=== PATIENT | male | born 1990 | race Caucasian/White ===

== ENCOUNTER → 2016-11-20 | Outpatient (CLI) | payer BC ==
--- NOTE | 2016-11-20 09:23 | RADIOLOGY REPORT (SQ) ---
EXAM DESCRIPTION: CT ABD/PELVIS NO ORAL OR IV COMPLETED DATE/TIME: 11/20/2016 8:40 am REASON FOR STUDY: HEMATURIA (R31.9) R31.9 HEMATURIA, UNSPECIFIED COMPARISON: None. TECHNIQUE: CT scan of the abdomen and pelvis performed without intravenous or oral contrast. Images reviewed with lung, soft tissue, and bone windows. Reconstructed coronal and sagittal MPR images revi ewed. All images stored on PACS. All CT scanners at this facility use dose modulation, iterative reconstruction, and/or weight based d osing when appropriate to reduce radiation dose to as low as reasonably achievable (ALARA). [facility]: Dose Right [facility]: CareDose [facility]: Dose Right [facility]: Teradose 4D [facility]: [employer] RADIATION DOSE: Up-to-date CT equipment and radiation dose reduction techniques were employed. CTDIv ol: 6.1 mGy. DLP: 315 mGy-cm.mGy. LIMITATIONS: None. FINDINGS: LOWER CHEST: No significant findings. No nodules or infiltrates. NON-CONTRASTED LIVER, SPLEEN, ADRENALS: Evaluation limited by lack of IV contrast. No identified sign ificant masses. PANCREAS: No masses. No peripancreatic inflammatory changes. GALLBLADDER: No identified stones by CT criteria. No inflammatory changes to suggest cholecystitis. RIGHT KIDNEY AND URETER: No suspicious masses. Assessment limited by lack of IV contrast. No signif icant calcifications. No hydronephrosis or hydroureter. LEFT KIDNEY AND URETER: No suspicious masses. Assessment limited by lack of IV contrast. No signifi cant calcifications. No hydronephrosis or hydroureter. AORTA AND RETROPERITONEUM: No aneurysm. No retroperitoneal masses or adenopathy. BOWEL AND PERITONEAL CAVITY: No obvious masses or inflammatory changes. No free fluid. APPENDIX: Normal. PELVIS, BLADDER, AND ABDOMINAL WALL:No abnormal masses. No free fluid. Bladder normal. BONES: No significant findings. OTHER: No other significant finding. IMPRESSION: NO SIGNIFICANT OR ACUTE PROCESS IN THE ABDOMEN OR PELVIS. COMMENT: Quality ID # [id number]: Final reports with documentation of one or more dose reduction techniques (e.g., Automated exposure control, adjustment of the mA and/or kV according to patient size, use of iterative reconstruction technique) TECHNICAL DOCUMENTATION: JOB ID: [id number] [employer]- All Rights Reserved
== END ==
LOC: RAD 07:38
PROVIDERS: ATTEND Physician Assistant
DX: R31.9 Hematuria, unspecified (principal)
CPT/HCPCS: 74176

== ENCOUNTER 2016-11-26 18:31 | Emergency (ER) | payer BC ==
[2016-11-26 18:42] VITALS: BP 131/73
[2016-11-26 19:34] LABS: AMORPHOUS SEDIMENT,URINE 1+ /HPF; APPEARANCE,URINE TURBID; BILIRUBIN,URINE NEGATIVE (NEGATIVE); GLUCOSE, URINE NEGATIVE (NEGATIVE); KETONES,URINE NEGATIVE (NEGATIVE); LEUKOCYTE ESTERASE,URINE NEGATIVE (NEGATIVE); NITRITE,URINE NEGATIVE (NEGATIVE); PROTEIN,URINE NEGATIVE (NEGATIVE); URINE SPECIFIC GRAVITY 1.018; UROBILINOGEN,URINE NEGATIVE mg/dL (<2.0)
--- NOTE | 2016-11-26 19:45 | ER Document Report ---
ED GI/ - General Chief Complaint: Urinary Problem Stated Complaint: URINARY ISSUES Time Seen by Provider: 11/26/16 19:32 Notes: Patient is a 26-year-old male presents emergency department complaining of hematuria. Patient states that he went to urgent care and had a CT scan done the other day, was sent home on antibiotics and told to follow-up.. Otherwise he admits intermittent groin discomfort but denies any penile discomfort, burning, discharge, testicular pain, . TRAVEL OUTSIDE OF THE [place] IN LAST 30 DAYS: No - Related Data Allergies/Adverse Reactions: Penicillins Allergy (Verified 11/26/16 18:41) Sulfa (Sulfonamide Antibiotics) Allergy (Verified 11/26/16 18:41) Past Medical History - Social History Smoking Status: Unknown if Ever Smoked Family History: Reviewed & Not Pertinent Renal/ Medical History: Denies: Hx Peritoneal Dialysis Review of Systems - Review of Systems Constitutional: No symptoms reported Gastrointestinal: No symptoms reported Genitourinary: See HPI -: Yes All other systems reviewed and negative Physical Exam - Vital signs Vitals: Temp Pulse Resp BP Pulse Ox 98.0 F 68 14 131/73 H 98 11/26/16 18:41 11/26/16 18:41 11/26/16 18:41 11/26/16 18:41 11/26/16 18:41 - General General appearance: Appears well, Alert In distress: None - Abdominal Inspection: Normal Distension: No distension Bowel sounds: Normal Tenderness: Nontender Organomegaly: No organomegaly - Rectal Notes: Patient refused - Genitourinary Inspection: Normal. No: Blood at meatus, Penile discharge, Other Tenderness: Nontender. No: Lesions, Testicle tender, Epididymis tender, Other Cremasteric reflex: Normal. No: Right reflex absent, Left reflex absent Scrotum: Normal. No: Swelling, Redness, Hot to touch, Other - Skin Skin Temperature: Warm Skin Moisture: Dry Skin Color: Normal Skin Turgor: Elastic Course - Re-evaluation Re-evalutation: 11/26/16 19:00 Patient is a 26-year-old male is hemodynamic stable, no acute distress afebrile. No evidence of hematuria noted on urinalysis. CT that was ordered as an outpatient does not reveal any evidence of intra-abdominal or pelvic process nor evidence of a kidney stone. Discussed results with patient's and told him to follow-up with urology regarding his complaints. Patient agrees with plan. - Vital Signs Vital signs: Temp Pulse Resp BP Pulse Ox 98.0 F 68 14 131/73 H 98 11/26/16 18:41 11/26/16 18:41 11/26/16 18:41 11/26/16 18:41 11/26/16 18:41 Discharge - Discharge Clinical Impression: Urinary problem Condition: Good Disposition: HOME, SELF-CARE Additional Instructions: Hematuria Hematuria, or blood in your urine, can be caused by minor medical problems , such as a bladder infection, or by more serious medical conditions, such as kidney stones or even tumors of the bladder or kidney. If the cause of the hematuria is known (such as a bladder infection) and can be treated, it may not need further evaluation. If the cause is not known, it will usually require further evaluation by a specialist, such as a urologist. In particular, unexplained hematuria in the older patient must be evaluated to rule out a serious condition, such as a bladder or kidney tumor. If the hematuria worsens or you are passing clots and then are unable to urinate, you should be re-evaluated. A catheter may need to be placed in the bladder to permit passage of urine. If you develop high fever, severe pain, or other new or worsening symptoms, return to the Emergency Department for re- evaluation. Referrals: [facility] [Provider Group] - Follow up in 1 week ALEX MULLEN MD [ACTIVE STAFF] - Follow up as needed
== END 2016-11-26 20:10 | disposition home or self-care (01) ==
LOC: ER 18:31
DX: R31.9 Hematuria, unspecified (principal); Z88.0 Allergy status to penicillin; Z88.2 Allergy status to sulfonamides
CPT/HCPCS: 81001; 99283

== ENCOUNTER 2018-03-20 01:35 | Inpatient (IN) | payer BC, OTHER ==
[2018-03-20] MEDS ORDERED: HYDROMORPHONE HCL INJ/PF 2 MG/ML AMPULE IV ONE ×2 (01:50→02:48)
[2018-03-20] MEDS ORDERED: NORMAL SALINE 1000 ML 1,000 ML IV ONE (01:50)
[2018-03-20 02:01] LABS: HEMATOCRIT 45.2 % (37.9-51.0); HEMOGLOBIN 15.7 g/dL (13.5-17.0); MEAN CORPUSCULAR HEMOGLOBIN 29.7 pg (27.0-33.4); MEAN CORPUSCULAR HGB CONC 34.7 g/dL (32.0-36.0); MEAN CORPUSCULAR VOLUME 86 fl (80-97); PLATELET COUNT 271 10^3/uL (150-450); RED BLOOD COUNT 5.27 10^6/uL (4.35-5.55); RED CELL DISTRIBUTION WIDTH 14.5 % (11.5-14.0); WHITE BLOOD COUNT 13.7 10^3/uL (4.0-10.5)
[2018-03-20 02:08] LABS: INTERNATIONAL RATION (INR) 0.83; PROTHROMBIN TIME 11.9 SEC (11.4-15.4)
[2018-03-20 02:09] LABS: PARTIAL THROMBOPLASTIN TIME 26.2 SEC (23.5-35.8)
[2018-03-20 02:13] LABS: ALANINE AMINOTRANSFERASE 141 U/L (21-72); ALBUMIN 5.1 g/dL (3.5-5.0); ALCOHOL 261 mg/dL (NONE DETECTED); ALKALINE PHOSPHATASE 65 U/L (38-126); ANION GAP 13 (5-19); ASPARTATE AMINO TRANSFERASE 188 U/L (17-59); BILIRUBIN,DIRECT 0.4 mg/dL (0.0-0.4); BILIRUBIN,TOTAL 0.5 mg/dL (0.2-1.3); BLOOD UREA NITROGEN 15 mg/dL (7-20); CALCIUM 9.2 mg/dL (8.4-10.2); CARBON DIOXIDE 25 mmol/L (22-30); CHLORIDE 108 mmol/L (98-107); GLUCOSE 99 mg/dL (75-110); POTASSIUM 4.4 mmol/L (3.6-5.0); SODIUM 146.1 mmol/L (137-145); TOTAL PROTEIN 7.6 g/dL (6.3-8.2)
[2018-03-20 02:20] LABS: ABSOLUTE LYMPHOCYTES# (MANUAL) 5.2 10^3/uL (0.5-4.7); ABSOLUTE MONOCYTES # (MANUAL) 1.4 10^3/uL (0.1-1.4); ABSOLUTE NEUTROPHILS# (MANUAL) 7.1 10^3/uL (1.7-8.2); BASOPHILS % (MANUAL) 0 % (0-2); EOSINOPHILS % (MANUAL) 0 % (0-6); LYMPHOCYTES % (MANUAL) 38 % (13-45); MONOCYTES % (MANUAL) 10 % (3-13); SEGMENTED NEUTROPHILS % (MAN) 52 % (42-78); TOTAL CELLS COUNTED 100
[2018-03-20 02:22] LABS: PLATELET COMMENT ADEQUATE; RBC MORPHOLOGY COMMENT NORMO-CYTIC/CHROMIC; TOXIC GRANULATION SLIGHT; TOXIC VACUOLATION PRESENT
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
[2018-03-20] MEDS ORDERED: ONDANSETRON HCL INJ/PF 4 MG/2 ML SDV IV ONE (05:51)
[2018-03-20] MEDS ORDERED: RINGERS SOLUTION,LACTATED 1,000 ML IV ONE (05:53)
[2018-03-20] MEDS ORDERED: MIDAZOLAM 2 MG/2 ML INJ ONE (10:21)
[2018-03-20] MEDS ORDERED: ACETAMINOPHEN 1,000 MG/100 ML RTUPB IV ONE (10:21)
[2018-03-20] MEDS ORDERED: PROPOFOL INJ 200 MG/20 ML VIAL IV ONE (10:21)
[2018-03-20] MEDS ORDERED: HYDROMORPHONE HCL INJ/PF 2 MG/ML AMPULE ONE (10:21)
[2018-03-20] MEDS ORDERED: METOCLOPRAMIDE HCL INJ/PF 10 MG/2 ML SDV ONE (10:30)
[2018-03-20] MEDS ORDERED: DEXAMETHASONE SOD PHOSPHATE INJ 4 MG/1 ML VIAL ONE (10:30)
[2018-03-20] MEDS ORDERED: ONDANSETRON HCL INJ/PF 4 MG/2 ML SDV ONE ×2 (10:30→15:13)
[2018-03-20] MEDS ORDERED: SUCCINYLCHOLINE CHLORIDE INJ 200 MG/10 ML VIAL ONE (10:30)
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
[2018-03-20] MEDS ORDERED: ONDANSETRON HCL INJ/PF 4 MG/2 ML SDV IV PRN (11:34)
[2018-03-20] MEDS ORDERED: DIPHENHYDRAMINE HCL 50 MG/ML VIAL IV PRN (11:34)
[2018-03-20] MEDS ORDERED: FENTANYL CITRATE INJ/PF 100 MCG/2 ML AMPUL IV PRN ×3 (11:34)
[2018-03-20] MEDS ORDERED: OXYCODONE-ACETAMINOPHEN 5-325 MG TABLET PO PRN ×3 (11:34→15:12)
[2018-03-20] MEDS ORDERED: MEPERIDINE HCL/PF INJ 25 MG/1 ML DISP.SYRIN IV PRN (11:34)
[2018-03-20] MEDS ORDERED: PROMETHAZINE HCL INJ 25 MG/1 ML VIAL IV PRN ×2 (11:34)
[2018-03-20] MEDS ORDERED: CEFAZOLIN INJ 1 GM VIAL ONE (12:43)
[2018-03-20] MEDS: ONDANSETRON HCL INJ/PF 4 MG/2 ML SDV IV PRN (15:03)
[2018-03-20] MEDS ORDERED: MAG HYDROX/AL HYDROX/SIMETH SUSP 30 ML UDCUP PO PRN (15:04)
[2018-03-20] MEDS: PROMETHAZINE HCL INJ 25 MG/1 ML VIAL ONE ×2 (15:33→15:40)
--- NOTE | 2018-03-20 17:43 | RADIOLOGY REPORT (SQ) ---
EXAM DESCRIPTION: NO CHG FLUORO; FEMUR LEFT COMPLETED DATE/TIME: 03/20/2018 3:30 pm REASON FOR STUDY: LEFT FEMUR FX NAILING COMPARISON: Plain radiographs FLUOROSCOPY TIME: 2.8 minutes 3 images saved to PACS. TECHNIQUE: Intra-operative images acquired during surgical procedure to evaluate progress. NUMBER OF IMAGES: 3 LIMITATIONS: None. FINDINGS: Jose Antonio with traversing screws proximal and distal with anatomic reduction of the mid femoral fracture. IMPRESSION: IMAGE(S) OBTAINED DURING PROCEDURE. COMMENT: Quality ID 145: Final reports for procedures using fluoroscopy that document radiation exp osure indices, or exposure time and number of fluorographic images (if radiation exposure indices are not available) Please consult full operative report of the attending physician for description of the procedure. TECHNICAL DOCUMENTATION: JOB ID: [id number] [employer]- All Rights Reserved Reading location - IP/workstation name: [email or web address]
--- NOTE | 2018-03-20 17:43 | RADIOLOGY REPORT (SQ) ---
EXAM DESCRIPTION: NO CHG FLUORO; FEMUR LEFT COMPLETED DATE/TIME: 03/20/2018 3:30 pm REASON FOR STUDY: LEFT FEMUR FX NAILING COMPARISON: Plain radiographs FLUOROSCOPY TIME: 2.8 minutes 3 images saved to PACS. TECHNIQUE: Intra-operative images acquired during surgical procedure to evaluate progress. NUMBER OF IMAGES: 3 LIMITATIONS: None. FINDINGS: Jose Antonio with traversing screws proximal and distal with anatomic reduction of the mid femoral fracture. IMPRESSION: IMAGE(S) OBTAINED DURING PROCEDURE. COMMENT: Quality ID 145: Final reports for procedures using fluoroscopy that document radiation exp osure indices, or exposure time and number of fluorographic images (if radiation exposure indices are not available) Please consult full operative report of the attending physician for description of the procedure. TECHNICAL DOCUMENTATION: JOB ID: [id number] [employer]- All Rights Reserved Reading location - IP/workstation name: [email or web address]
[2018-03-20] MEDS ORDERED: CEFAZOLIN 2 GM/D5W RTU 50 ML IV SCH (18:00)
[2018-03-20] MEDS ORDERED: CEFAZOLIN SODIUM 2 GM in DEXTROSE 5%-WATER 100 ML IV SCH (18:00)
[2018-03-20] MEDS ORDERED: CEFAZOLIN 2 GM/D5W RTU 2 GM/50 ML RTUPB IV ONE ×2 (18:31→18:45)
[2018-03-20] MEDS: SENNOSIDES/DOCUSATE 8.6-50 MG 1 EACH TABLET PO SCH (18:42)
[2018-03-20] MEDS: OXYCODONE-ACETAMINOPHEN 5-325 MG TABLET PO PRN (22:06)
[2018-03-21] MEDS ORDERED: CEFAZOLIN 2 GM/D5W RTU 2 GM/50 ML RTUPB IV ONE (00:45)
[2018-03-21] MEDS ORDERED: DIPHENHYDRAMINE HCL 25 MG CAPSULE ONE (01:25)
[2018-03-21] MEDS ORDERED: VANCOMYCIN HCL INJ 1000 MG VIAL IV PRN (01:33)
[2018-03-21] MEDS ORDERED: DIPHENHYDRAMINE HCL 25 MG CAPSULE PO ONE (01:40)
[2018-03-21] MEDS ORDERED: VANCOMYCIN HCL 1,500 MG in DEXTROSE 5%-WATER 250 ML IV ONE (01:45)
[2018-03-21] MEDS ORDERED: VANCOMYCIN HCL INJ 500 MG VIAL ONE (03:20)
[2018-03-21] MEDS ORDERED: VANCOMYCIN HCL INJ 1000 MG VIAL ONE (03:20)
[2018-03-21] MEDS: OXYCODONE-ACETAMINOPHEN 5-325 MG TABLET PO PRN ×4 (03:58→22:37)
[2018-03-21 05:50] LABS: HEMATOCRIT 32.1 % (37.9-51.0); MEAN CORPUSCULAR HEMOGLOBIN 29.4 pg (27.0-33.4); MEAN CORPUSCULAR HGB CONC 34.7 g/dL (32.0-36.0); MEAN CORPUSCULAR VOLUME 85 fl (80-97); PLATELET COUNT 192 10^3/uL (150-450); RED BLOOD COUNT 3.79 10^6/uL (4.35-5.55); RED CELL DISTRIBUTION WIDTH 14.4 % (11.5-14.0); WHITE BLOOD COUNT 12.5 10^3/uL (4.0-10.5)
[2018-03-21 06:00] LABS: HEMOGLOBIN 11.1 g/dL (13.5-17.0)
[2018-03-21] MEDS ORDERED: CEFAZOLIN 2 GM/D5W RTU 2 GM/50 ML RTUPB IV SCH ×2 (06:00)
[2018-03-21 06:29] LABS: ANION GAP 7 (5-19); BLOOD UREA NITROGEN 12 mg/dL (7-20); CARBON DIOXIDE 28 mmol/L (22-30); CHLORIDE 107 mmol/L (98-107); GLUCOSE 117 mg/dL (75-110); POTASSIUM 4.6 mmol/L (3.6-5.0)
[2018-03-21] MEDS: ENOXAPARIN SODIUM INJ 40 MG/0.4 ML DISP.SYRIN SUBCUT SCH (10:53)
[2018-03-21] MEDS: SENNOSIDES/DOCUSATE 8.6-50 MG 1 EACH TABLET PO SCH ×2 (12:08→17:35)
[2018-03-21] MEDS: PRENATAL VITAMIN W DHA CAPSULE PO SCH (12:08)
--- NOTE | 2018-03-21 14:49 | Operative Report ---
Operative Report DATE OF SURGERY: 03/20/18 PREOPERATIVE DIAGNOSIS: Displaced left femoral shaft fracture POSTOPERATIVE DIAGNOSIS: Same OPERATION: Intramedullary nailing of left femoral shaft fracture SURGEON: DINA VU ANESTHESIA: GA TISSUE REMOVED OR ALTERED: none COMPLICATIONS: none ESTIMATED BLOOD LOSS: 50 mL INTRAOPERATIVE FINDINGS: As above PROCEDURE: Patient received preoperative antibiotics in the holding area and there was used and given general anesthetic. Patient successfully was placed in the fracture table and placed in traction and C-arm pictures were taken showing the fracture fragments. We make sure we will could do a reduction prior to prepping and draping. We made sure on the AP and lateral. Once this was done in the left hip and thigh and knee were prepped and draped in a normal sterile surgical fashion. Timeout was done identifying the left femur as the correct site. A 1 inch incision was done proximal to the greater trochanter just at the level of the ASIS. Dissection was taken down to the tip of the greater trochanter and we were able to then place a guidepin and drill it and placed intramedullary. This was confirmed with C-arm. We then did our entry reamer and was able then to place a guide tape and try to pass it from the proximal fragment laterally to the distal fragment we did need to use the persuaded to allow that to happen. We used a crutch and manual reduction as the leg was in traction to allow us to pass the guidepin into the bone. Once he was successfully able to do this and confirmed on C-arm was able then to measure the length. Once this was done then we proceeded to do 6 reaming starting with a 912.5 reamer when we had good chatter. So we went with a 10 x 400 nail. This nail was then introduced successfully in the femur over the guidewire while the reduction was held. Once the reduction and the nail was placed into the distal fragment did not then proceeded to remove the guidewire successfully. We make sure that the height and distance of the nail was adequate and then we proceeded through the trocar to be able to drill out the oblong hole and placed our locking screw proximally after measuring the appropriate length. Distally make sure not to lose her rotation were able to get perfect circles and placed our 2 distal locking screws after getting the drill through the appropriate holes measuring and placing our screws successfully. C-arm pictures were taken showing the proper length of s crews and placement of the screws as well as the nail as and as well as a reduction. Once all this was satisfied we then proceeded to use bulb irrigation and closed our wounds. All the incisions were closed with 2-0 Vicryl the proximal incision required some 0 Vicryl to approximate the fascia and the abductor muscle. Rafael were used for skin and then Xeroform 4 x 4 dressing and Tegaderm were applied to the extremity. Patient was then successfully taken out of traction and drapes were removed and the patient was extubated and sent to PACU in stable condition.
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
[2018-03-22 06:00] LABS: HEMATOCRIT 30.5 % (37.9-51.0); HEMOGLOBIN 10.5 g/dL (13.5-17.0); MEAN CORPUSCULAR HEMOGLOBIN 29.5 pg (27.0-33.4); MEAN CORPUSCULAR HGB CONC 34.5 g/dL (32.0-36.0); MEAN CORPUSCULAR VOLUME 85 fl (80-97); PLATELET COUNT 176 10^3/uL (150-450); RED BLOOD COUNT 3.57 10^6/uL (4.35-5.55); RED CELL DISTRIBUTION WIDTH 14.6 % (11.5-14.0); WHITE BLOOD COUNT 12.3 10^3/uL (4.0-10.5)
[2018-03-22] MEDS: OXYCODONE-ACETAMINOPHEN 5-325 MG TABLET PO PRN (08:54)
[2018-03-22] MEDS: ONDANSETRON HCL INJ/PF 4 MG/2 ML SDV IV PRN ×3 (08:57→21:05)
[2018-03-22] MEDS: PRENATAL VITAMIN W DHA CAPSULE PO SCH (09:08)
[2018-03-22] MEDS: ENOXAPARIN SODIUM INJ 40 MG/0.4 ML DISP.SYRIN SUBCUT SCH (09:08)
[2018-03-22] MEDS: SENNOSIDES/DOCUSATE 8.6-50 MG 1 EACH TABLET PO SCH ×2 (09:08→18:17)
[2018-03-22] MEDS: IBUPROFEN 800 MG TABLET PO PRN (18:16)
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
[2018-03-22] MEDS: HYDROCODONE/ACETAMINOPHEN 5-325 MG TABLET PO PRN (20:47)
[2018-03-22] MEDS: RINGERS SOLUTION,LACTATED 1,000 ML IV PRN (20:56)
[2018-03-23] MEDS: HYDROCODONE/ACETAMINOPHEN 5-325 MG TABLET PO PRN ×3 (03:36→18:04)
[2018-03-23] MEDS: ONDANSETRON HCL INJ/PF 4 MG/2 ML SDV IV PRN ×2 (03:38→18:56)
[2018-03-23] MEDS: IBUPROFEN 800 MG TABLET PO PRN ×2 (03:45→18:05)
[2018-03-23] MEDS: RINGERS SOLUTION,LACTATED 1,000 ML IV PRN ×2 (04:46→20:15)
[2018-03-23 06:46] LABS: HEMATOCRIT 29.7 % (37.9-51.0); HEMOGLOBIN 10.2 g/dL (13.5-17.0); MEAN CORPUSCULAR HEMOGLOBIN 29.4 pg (27.0-33.4); MEAN CORPUSCULAR HGB CONC 34.5 g/dL (32.0-36.0); MEAN CORPUSCULAR VOLUME 85 fl (80-97); PLATELET COUNT 180 10^3/uL (150-450); RED BLOOD COUNT 3.49 10^6/uL (4.35-5.55); RED CELL DISTRIBUTION WIDTH 14.2 % (11.5-14.0); WHITE BLOOD COUNT 7.6 10^3/uL (4.0-10.5)
[2018-03-23] MEDS: PRENATAL VITAMIN W DHA CAPSULE PO SCH (09:57)
[2018-03-23] MEDS: ENOXAPARIN SODIUM INJ 40 MG/0.4 ML DISP.SYRIN SUBCUT SCH (09:57)
[2018-03-23] MEDS: SENNOSIDES/DOCUSATE 8.6-50 MG 1 EACH TABLET PO SCH ×2 (09:57→17:58)
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
[2018-03-23] MEDS: NICOTINE 21 MG/24 HR PATCH.TD24 TD SCH (11:05)
[2018-03-23] MEDS: KETOROLAC TROMETHAMINE INJ/PF 30 MG/1 ML SDV IV SCH (21:31)
--- NOTE | 2018-03-23 22:43 | RADIOLOGY REPORT (SQ) ---
CT HEAD WITHOUT IV CONTRAST HISTORY: Persistent headache. Nausea. COMPARISON: 03/19/2018 TECHNIQUE: CT scan of the brain without IV contrast. This exam was performed according to our departmental dose-optimization program, which includes automated exposure control, adjustment of the mA and/or kV according to patient size and/or use of iterative reconstruction technique. FINDINGS: There is prominence of the bilateral extra-axial spaces which is nonspecific. No focal white matter lesions are seen. No evidence of acute infarction, intracranial hemorrhage, extra-axial fluid collection, or midline shift. No air-fluid levels are seen in the paranasal sinuses to suggest acute sinusitis. IMPRESSION: Prominent bilateral extra-axial spaces which is nonspecific but may be sequela of chronic subdural hematoma versus subdural hygroma. Recommend MRI for complete evaluation.
--- NOTE | 2018-03-23 23:48 | Progress Note ---
Provider Note Provider Note: Patient complaining of headache/nausea unrelieved w/ medication. CT Scan of head ordered which demonstrated prominent bilateral extradural spaces, nonspecific finding but possible chronic subdural hematoma. Discussed w/ Neurosurgery Dr. Rich who recommended MRI and findings possible normal variant. Plan is to obtain MRI for further evaluation.
[2018-03-24] MEDS: ONDANSETRON HCL INJ/PF 4 MG/2 ML SDV IV PRN ×2 (01:12→10:38)
[2018-03-24] MEDS: ACETAMINOPHEN 325 MG TABLET PO PRN ×2 (01:18→19:22)
[2018-03-24] MEDS: RINGERS SOLUTION,LACTATED 1,000 ML IV PRN ×3 (03:34→19:23)
[2018-03-24] MEDS ORDERED: PROMETHAZINE HCL INJ 25 MG/1 ML VIAL ONE (04:27)
[2018-03-24] MEDS ORDERED: PROMETHAZINE HCL INJ 25 MG/1 ML VIAL IV PRN (04:35)
[2018-03-24] MEDS ORDERED: BUTALB/ACETAMINOPHEN/CAFFEINE 1 TAB EACH PO ONE (05:00)
[2018-03-24] MEDS: KETOROLAC TROMETHAMINE INJ/PF 30 MG/1 ML SDV IV SCH ×3 (05:02→20:24)
--- NOTE | 2018-03-24 10:00 | RADIOLOGY REPORT (SQ) ---
EXAM DESCRIPTION: MRI HEAD WITHOUT COMPLETED DATE/TIME: 03/24/2018 9:17 am REASON FOR STUDY: persistent nausea, ct impression COMPARISON: CT studies last 2 days. TECHNIQUE: Multiplanar imaging includes non-contrasted T1, T2, FLAIR, and diffusion with ADC map seq uences. Images stored on PACS. LIMITATIONS: None. FINDINGS: ANATOMY: No anomalies. Normal vascular flow voids. Pituitary fossa normal. CSF SPACES: There is no evidence of ventricular dilatation. No extra-axial mass or hemorrhage detect ed. While there is slightly conspicuous CSF intensity over the convexities, no focal collection iden tified. CEREBRUM: Sulci and gyri normal in size and contour. Normal white matter signal on FLAIR imaging. No evidence of hemorrhage, mass, or extraaxial fluid collection. POSTERIOR FOSSA: No signal alteration. No hemorrhage. No edema, masses or mass effect. Internal jayden tory canals, cerebello-pontine angles, mastoids normal. DIFFUSION IMAGING: Negative for acute or sub-acute infarction. ORBITS: No masses. Globes normal. PARANASAL SINUSES: No fluid levels. Mucosa normal. OTHER: No other significant finding. IMPRESSION: 1. Slight prominence of CSF intensity signal diffusely over the convexities. This looks more conspic uous compared to CT from 03/20/2018, similar to 03/23/2018 study. Consistent with mild progressive angélica ateral hygromas. No ventricular dilatation. EVIDENCE OF ACUTE STROKE: NO. TECHNICAL DOCUMENTATION: JOB ID: [id number] [employer]- All Rights Reserved Reading location - IP/workstation name: [email or web address]
[2018-03-24] MEDS: HYDROCODONE/ACETAMINOPHEN 5-325 MG TABLET PO PRN (10:32)
[2018-03-24] MEDS: PRENATAL VITAMIN W DHA CAPSULE PO SCH (10:36)
[2018-03-24] MEDS: SENNOSIDES/DOCUSATE 8.6-50 MG 1 EACH TABLET PO SCH ×2 (10:37→19:21)
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
[2018-03-24] MEDS: METOCLOPRAMIDE HCL INJ/PF 10 MG/2 ML SDV IV PRN ×2 (14:33→20:35)
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
[2018-03-24] MEDS ORDERED: KETOROLAC TROMETHAMINE INJ/PF 30 MG/1 ML SDV IV SCH (18:00)
[2018-03-24] MEDS: NICOTINE 21 MG/24 HR PATCH.TD24 TD SCH (20:41)
[2018-03-24] MEDS: AMITRIPTYLINE HCL 25 MG TABLET PO SCH (22:11)
[2018-03-25] MEDS: RINGERS SOLUTION,LACTATED 1,000 ML IV PRN ×2 (00:50→17:41)
[2018-03-25] MEDS: KETOROLAC TROMETHAMINE INJ/PF 30 MG/1 ML SDV IV SCH ×4 (03:30→21:51)
[2018-03-25] MEDS: METOCLOPRAMIDE HCL INJ/PF 10 MG/2 ML SDV IV PRN ×4 (03:35→21:52)
[2018-03-25] MEDS: PRENATAL VITAMIN W DHA CAPSULE PO SCH (09:13)
[2018-03-25] MEDS: SENNOSIDES/DOCUSATE 8.6-50 MG 1 EACH TABLET PO SCH ×2 (09:13→17:39)
[2018-03-25] MEDS: NICOTINE 21 MG/24 HR PATCH.TD24 TD SCH (09:14)
[2018-03-25] MEDS ORDERED: CYCLOBENZAPRINE HCL 10 MG TABLET PO PRN (14:33)
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
[2018-03-25] MEDS: DIPHENHYDRAMINE HCL 50 MG/ML VIAL IV PRN ×2 (15:18→21:52)
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
[2018-03-25] MEDS: AMITRIPTYLINE HCL 25 MG TABLET PO SCH (21:39)
[2018-03-26] MEDS: ACETAMINOPHEN SOLN 325 MG/10.15 ML UDCUP PO PRN ×2 (00:12→12:41)
[2018-03-26] MEDS: DIPHENHYDRAMINE HCL 50 MG/ML VIAL IV PRN (03:38)
[2018-03-26] MEDS: KETOROLAC TROMETHAMINE INJ/PF 30 MG/1 ML SDV IV SCH ×3 (03:39→15:31)
[2018-03-26] MEDS: METOCLOPRAMIDE HCL INJ/PF 10 MG/2 ML SDV IV PRN ×2 (04:07→15:31)
[2018-03-26 07:09] LABS: ABSOLUTE EOSINOPHILS # (AUTO) 0.1 10^3/uL (0.0-0.6); ABSOLUTE LYMPHOCYTES (AUTO) 1.9 10^3/uL (0.5-4.7); ABSOLUTE MONOCYTES (AUTO) 1.1 10^3/uL (0.1-1.4); ABSOLUTE NEUT (AUTO) 8.3 10^3/uL (1.7-8.2); BASOPHILS % (AUTO) 0.3 % (0-2); EOSINOPHILS % (AUTO) 0.7 % (0-6); HEMATOCRIT 30.5 % (37.9-51.0); HEMOGLOBIN 10.4 g/dL (13.5-17.0); MEAN CORPUSCULAR HEMOGLOBIN 29.2 pg (27.0-33.4); MEAN CORPUSCULAR HGB CONC 34.1 g/dL (32.0-36.0); MEAN CORPUSCULAR VOLUME 86 fl (80-97); MONOCYTES % (AUTO) 9.4 % (3-13); PLATELET COUNT 241 10^3/uL (150-450); RED BLOOD COUNT 3.57 10^6/uL (4.35-5.55); RED CELL DISTRIBUTION WIDTH 14.1 % (11.5-14.0); SEGMENTED NEUTROPHILS % (AUTO) 72.6 % (42-78); TOTAL CELLS COUNTED % (AUTO) 100 %; WHITE BLOOD COUNT 11.4 10^3/uL (4.0-10.5)
[2018-03-26 07:32] LABS: ANION GAP 9 (5-19); BLOOD UREA NITROGEN 16 mg/dL (7-20); CARBON DIOXIDE 24 mmol/L (22-30); CHLORIDE 108 mmol/L (98-107); GLUCOSE 95 mg/dL (75-110); POTASSIUM 4.4 mmol/L (3.6-5.0); SODIUM 141.3 mmol/L (137-145)
[2018-03-26] MEDS: NICOTINE 21 MG/24 HR PATCH.TD24 TD SCH (09:41)
[2018-03-26] MEDS: PRENATAL VITAMIN W DHA CAPSULE PO SCH (09:42)
[2018-03-26] MEDS: SENNOSIDES/DOCUSATE 8.6-50 MG 1 EACH TABLET PO SCH (09:42)
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
[2018-03-26 16:42] VITALS: BP 190/71
== END 2018-03-26 17:45 | disposition home or self-care (01) | DRG 482 ==
LOC: ER 01:35 → EH 04:55 → 4S 16:15
PROVIDERS: ADMIT Orthopaedic Surgery; ATTEND Orthopaedic Surgery
PROC: 0QS936Z Reposition Left Femoral Shaft with Intramedullary Internal Fixation Device, Percutaneous Approach (ICD-10-PCS; principal; 2018-03-20 12:30)
DX: S72.332A Displaced oblique fracture of shaft of left femur, initial encounter for closed fracture (principal); V22.4XXA Motorcycle driver injured in collision with two- or three-wheeled motor vehicle in traffic accident, initial encounter; R78.0 Finding of alcohol in blood; G44.309 Post-traumatic headache, unspecified, not intractable; F07.81 Postconcussional syndrome; F17.210 Nicotine dependence, cigarettes, uncomplicated; F32.9 Major depressive disorder, single episode, unspecified; Z88.2 Allergy status to sulfonamides; Z88.0 Allergy status to penicillin; Y92.9 Unspecified place or not applicable
CPT/HCPCS: 01220; 36415; 70450; 70551; 71275; 72125; 74177; 80048; 80053; 80307; 85025; 85027; 85610; 85730; 86850; 86900; 86901; 94799; 96361; 96374; 96376; 99285; C1713; C1769; J0131; J0330; J0690; J1100; J1170; J1200; J1650; J1885; J2250; J2405; J2550; J2704; J2765; J3370; J3490; J7030; J7060; J7120; L0120; L0172

== ENCOUNTER 2019-03-29 09:19 | Emergency (ER) | payer BC, OTHER ==
[2019-03-29] MEDS ORDERED: KETOROLAC TROMETHAMINE INJ/PF 30 MG/1 ML SDV IV ONE (10:07)
--- NOTE | 2019-03-29 10:11 | ER Document Report ---
ED Medical Screen (RME) - General Chief Complaint: Flank Pain Stated Complaint: FLANK PAIN Time Seen by Provider: 03/29/19 10:04 Notes: HPI: 29-year-old male presenting for evaluation of left flank pain that began last night. Feels like the discomfort radiates around into the left abdomen. No fever. Denies nausea vomiting. Patient did pass a kidney stone 3 years ago states this feels similar I have greeted and performed a rapid initial assessment of this patient. A comprehensive ED assessment and evaluation of the patient, analysis of test results and completion of the medical decision making process will be conducted by additional ED providers PHYSICAL EXAMINATION: GENERAL: Well-appearing, well-nourished and in mild acute distress. HEAD: Atraumatic, normocephalic. EYES: sclera anicteric, conjunctiva are normal. ENT: Moist mucous membranes. NECK: Normal range of motion LUNGS: Normal work of breathing HEART: 2+ radial pulses bilaterally ABD: limited by positioning for exam in triage. Mild left CVA tenderness EXTREMITIES: no pitting or edema. No cyanosis. NEUROLOGICAL: No focal neurological deficits. Moves all extremities spontaneously and on command. PSYCH: Normal mood, normal affect. SKIN: Warm, Dry, normal turgor, no rashes or lesions noted. TRAVEL OUTSIDE OF THE [place] IN LAST 30 DAYS: No - Related Data Allergies/Adverse Reactions: cefazolin Allergy (Intermediate, Verified 03/21/18 08:05) Generalized Itching Penicillins Allergy (Verified 11/26/16 18:41) Sulfa (Sulfonamide Antibiotics) Allergy (Verified 11/26/16 18:41) Past Medical History - Social History Frequency of alcohol use: Social Drug Abuse: None Renal/ Medical History: Denies: Hx Peritoneal Dialysis Psychiatric Medical History: Reports: Hx Depression Past Surgical History: Reports: Hx Tonsillectomy Physical Exam - Vital signs Vitals: Temp Pulse Resp BP Pulse Ox 97.9 F 70 16 136/89 H 97 03/29/19 09:24 03/29/19 09:24 03/29/19 09:24 03/29/19 09:24 03/29/19 09:24 Course - Vital Signs Vital signs: Temp Pulse Resp BP Pulse Ox 97.9 F 70 16 136/89 H 97 03/29/19 09:24 03/29/19 09:24 03/29/19 09:24 03/29/19 09:24 03/29/19 09:24
[2019-03-29 10:31] LABS: APPEARANCE,URINE CLEAR; BILIRUBIN,URINE NEGATIVE (NEGATIVE); COLOR,URINE YELLOW; GLUCOSE, URINE NEGATIVE (NEGATIVE); KETONES,URINE NEGATIVE (NEGATIVE); LEUKOCYTE ESTERASE,URINE NEGATIVE (NEGATIVE); NITRITE,URINE NEGATIVE (NEGATIVE); PROTEIN,URINE NEGATIVE (NEGATIVE); URINE SPECIFIC GRAVITY 1.017; UROBILINOGEN,URINE NEGATIVE mg/dL (<2.0)
--- NOTE | 2019-03-29 10:40 | ER Document Report ---
ED General - General Chief Complaint: Flank Pain Stated Complaint: FLANK PAIN Time Seen by Provider: 03/29/19 10:04 Notes: Patient is a 29-year-old white male with a past medical history of kidney stone and prior left femur repair who presents to the emergency department the chief complaint of left back/flank pain that began yesterday. He states this time his going on since last night the pain is become more constant and severe. States it is a sharp/burning pain. Reports that originates in the left posterior mid back and radiates around the left flank. States this feels similar to her previous kidney stone. Denies any urinary complaints or abdominal pain. No fever, nausea or vomiting, diarrhea, constipation, chills or night sweats. Denies any testicular pain or swelling TRAVEL OUTSIDE OF THE [place] IN LAST 30 DAYS: No - Related Data Allergies/Adverse Reactions: cefazolin Allergy (Intermediate, Verified 03/21/18 08:05) Generalized Itching Penicillins Allergy (Verified 11/26/16 18:41) Sulfa (Sulfonamide Antibiotics) Allergy (Verified 11/26/16 18:41) Past Medical History - Social History Smoking Status: Current Every Day Smoker Frequency of alcohol use: Social Drug Abuse: None Family History: Reviewed & Not Pertinent Patient has suicidal ideation: No Patient has homicidal ideation: No Renal/ Medical History: Denies: Hx Peritoneal Dialysis Psychiatric Medical History: Reports: Hx Depression Past Surgical History: Reports: Hx Tonsillectomy Review of Systems - Review of Systems Genitourinary: Flank pain -: Yes All other systems reviewed and negative Physical Exam - Vital signs Vitals: Temp Pulse Resp BP Pulse Ox 97.9 F 70 16 136/89 H 97 03/29/19 09:24 03/29/19 09:24 03/29/19 09:24 03/29/19 09:24 03/29/19 09:24 - General General appearance: Appears well, Alert - Respiratory Respiratory status: No respiratory distress Chest status: Nontender Breath sounds: Normal Chest palpation: Normal - Cardiovascular Rhythm: Regular Heart sounds: Normal auscultation - Abdominal Inspection: Normal Distension: No distension Bowel sounds: Normal Tenderness: Nontender Organomegaly: No organomegaly - Back Back: Other - Mild tenderness to palpation left parathoracic/paralumbar musculature distal to the left CVA area. No deformity step-off or crepitus. No midline spinal tenderness. Normal gait. Lower extremity strength 5 out of 5 bilaterally. 2+ DP/PT bilaterally. Patient able to elevate great toes bilaterally.. No: CVA tenderness - Neurological Neuro grossly intact: Yes Cognition: Normal Orientation: AAOx4 Dewey Coma Scale Eye Opening: Spontaneous Dewey Coma Scale Verbal: Oriented Wilfredo Coma Scale Motor: Obeys Commands Dewey Coma Scale Total: 15 Speech: Normal Motor strength normal: LUE, RUE, LLE, RLE Sensory: Normal - Psychological Associated symptoms: Normal affect, Normal mood - Skin Skin Temperature: Warm Skin Moisture: Dry Skin Color: Normal Course - Re-evaluation Re-evalutation: 03/29/19 12:07 Exam showing a small left nephrolith. No obstructive uropathy. Patient has a urologist that he seen in the past after a prior kidney stone expulsion. He will call to follow-up for continued outpatient care, monitoring and management. He will be given a short course of pain medications, PDMP was checked showing n o controlled substances at this time. Counseled him at length regarding the importance of outpatient follow-up and advised that he return here or any ER immediately with any new, persistent or worsening symptoms. He verbalized understood and agreed. - Vital Signs Vital signs: Temp Pulse Resp BP Pulse Ox 97.9 F 70 16 136/89 H 97 03/29/19 09:24 03/29/19 09:24 03/29/19 09:24 03/29/19 09:24 03/29/19 09:24 - Laboratory Result Diagrams: 03/29/19 10:34 03/29/19 10:34 Laboratory results interpreted by me: 03/29/19 10:34 RDW 14.2 H Discharge - Discharge Clinical Impression: Nephrolithiasis, Renal colic Condition: Stable Disposition: HOME, SELF-CARE Instructions: Oral Narcotic Medication ([facility]) Additional Instructions: Follow-up with your urologist as discussed. Follow-up with your regular doctor in 2 to 3 days for reevaluation. Return here or any ER immediately with any n ew, persistent or worsening symptoms. Prescriptions: Hydrocodone/Acetaminophen [[place] 5-325 mg Tablet] 1 tab PO Q6 PRN #12 tablet PRN Reason:
[2019-03-29 10:55] LABS: ABSOLUTE EOSINOPHILS # (AUTO) 0.1 10^3/uL (0.0-0.6); ABSOLUTE LYMPHOCYTES (AUTO) 2.8 10^3/uL (0.5-4.7); ABSOLUTE MONOCYTES (AUTO) 0.7 10^3/uL (0.1-1.4); ABSOLUTE NEUT (AUTO) 3.7 10^3/uL (1.7-8.2); BASOPHILS % (AUTO) 0.5 % (0-2); HEMATOCRIT 47.3 % (37.9-51.0); HEMOGLOBIN 16.3 g/dL (13.5-17.0); LYMPHOCYTES % (AUTO) 37.9 % (13-45); MEAN CORPUSCULAR HEMOGLOBIN 29.6 pg (27.0-33.4); MEAN CORPUSCULAR HGB CONC 34.5 g/dL (32.0-36.0); MEAN CORPUSCULAR VOLUME 86 fl (80-97); PLATELET COUNT 230 10^3/uL (150-450); RED BLOOD COUNT 5.52 10^6/uL (4.35-5.55); RED CELL DISTRIBUTION WIDTH 14.2 % (11.5-14.0); SEGMENTED NEUTROPHILS % (AUTO) 50.6 % (42-78); TOTAL CELLS COUNTED % (AUTO) 100 %; WHITE BLOOD COUNT 7.3 10^3/uL (4.0-10.5)
[2019-03-29 11:16] LABS: ANION GAP 8 (5-19); BLOOD UREA NITROGEN 15 mg/dL (7-20); CALCIUM 9.6 mg/dL (8.4-10.2); CARBON DIOXIDE 30 mmol/L (22-30); CHLORIDE 105 mmol/L (98-107); GLUCOSE 86 mg/dL (75-110); POTASSIUM 4.5 mmol/L (3.6-5.0)
--- NOTE | 2019-03-29 11:58 | RADIOLOGY REPORT (SQ) ---
EXAM DESCRIPTION: CT ABD/PELVIS NO ORAL OR IV COMPLETED DATE/TIME: 03/29/2019 11:42 am REASON FOR STUDY: left flank pain + kidney stone history COMPARISON: None. TECHNIQUE: CT scan of the abdomen and pelvis performed without intravenous or oral contrast. Images reviewed with lung, soft tissue, and bone windows. Reconstructed coronal and sagittal MPR images revi ewed. All images stored on PACS. All CT scanners at this facility use dose modulation, iterative reconstruction, and/or weight based d osing when appropriate to reduce radiation dose to as low as reasonably achievable (ALARA). [facility]: Dose Right [facility]: CareDose [facility]: Dose Right [facility]: Teradose 4D [facility]: WO Funding RADIATION DOSE: CT Rad equipment meets quality standard of care and radiation dose reduction techniq ues were employed. CTDIvol: 8.6 mGy. DLP: 510 mGy-cm.mGy. LIMITATIONS: None. FINDINGS: LOWER CHEST: No significant findings. No nodules or infiltrates. NON-CONTRASTED LIVER, SPLEEN, ADRENALS: Evaluation limited by lack of IV contrast. No identified sign ificant masses. PANCREAS: No masses. No peripancreatic inflammatory changes. GALLBLADDER: No identified stones by CT criteria. No inflammatory changes to suggest cholecystitis. RIGHT KIDNEY AND URETER: No suspicious masses. Assessment limited by lack of IV contrast. No signif icant calcifications. No hydronephrosis or hydroureter. LEFT KIDNEY AND URETER: No suspicious masses. Assessment limited by lack of IV contrast. 1 mm stone lower pole. No hydronephrosis or hydroureter. AORTA AND RETROPERITONEUM: No aneurysm. No retroperitoneal masses or adenopathy. BOWEL AND PERITONEAL CAVITY: No obvious masses or inflammatory changes. No free fluid. APPENDIX: Not visualized. PELVIS, BLADDER, AND ABDOMINAL WALL:No abnormal masses. No free fluid. Bladder normal. BONES: No significant findings. OTHER: No other significant finding. IMPRESSION: Small nonobstructing left renal calculus. COMMENT: Quality ID # 436: Final reports with documentation of one or more dose reduction techniques (e.g., Automated exposure control, adjustment of the mA and/or kV according to patient size, use of iterative reconstruction technique) TECHNICAL DOCUMENTATION: JOB ID: [id number] [employer]- All Rights Reserved Reading location - IP/workstation name: [email or web address]
[2019-03-29 12:16] VITALS: BP 126/84
== END 2019-03-29 12:25 | disposition home or self-care (01) ==
LOC: ER 09:19
DX: N20.0 Calculus of kidney (principal); M54.9 Dorsalgia, unspecified; R10.9 Unspecified abdominal pain; F17.200 Nicotine dependence, unspecified, uncomplicated; Z88.1 Allergy status to other antibiotic agents; Z88.0 Allergy status to penicillin; Z88.2 Allergy status to sulfonamides
CPT/HCPCS: 99284; 96374; 36415; 85025; 80048; 81001; 74176; J1885